=== PATIENT | female | born 1975 | race Caucasian/White ===

== ENCOUNTER 2016-11-07 15:31 | Outpatient (CLI) | payer OTHER ==
[2015-05-08 19:39] VITALS: BP 123/78
--- NOTE | 2016-11-08 15:12 | OP Clinic Progress Note ---
REFERRING PHYSICIAN: Dr. Juan Seymour REASON FOR VISIT: This 40-year-old female is seen accompanied by her younger daughter. Rosina, for over 3 years, has had somewhat of a chronic cough. She has a variety of facial pains and discomfort. Her ears ring. She has a postauricular area of tenderness along her right cheek. The cough tends not to be productive. She does not smoke. The discomfort in both ears is about the same and the ringing in both ears is about the same. She has a history of having taken allergy shots or SLIT, which is sublingual immunotherapy, but had reactions. The oral cavity is status post tonsillectomy. There is some mild, not particularly severe, posterior pharyngitis and the nose has diffuse rhinitis. There is no gross purulence. Both eardrums are fairly retracted, particularly of the malleus and the umbo with a fair amount of tightening and tension. There is no gross fluid. The ear canals are fairly unremarkable. It is tender in the postauricular area and the submastoid area. No known exact etiology for the variety of issues. She does not describe having taken recent antibiotics. PLAN: I recommended simply a trial on antibiotics and in the more distant past, she has tolerated erythromycin, so I elected to use a Z-Richard and to take two Z-Paks 5 days apart and I will see her back in about 3 weeks. As opposed to getting just a lot of different tests, CAT scans, and chest x-rays, I simply keep it fairly simple and simply have a trial on the azithromycin. She has also taken a multitude of decongestants and antihistamines. Apparently, when she takes the decongestants, she gets heart palpitations. The patient will be seen back in about 3 weeks to see whether it responds to single therapy treatment. cc: Dr. Juan BURCH
== END 2016-11-07 15:32 ==
LOC: ENT 15:31
PROVIDERS: ATTEND Otolaryngology
DX: H93.13 Tinnitus, bilateral (principal); J02.9 Acute pharyngitis, unspecified
CPT/HCPCS: 99203

== ENCOUNTER 2016-12-05 15:52 | Outpatient (CLI) | payer OTHER ==
[2015-05-08 19:39] VITALS: BP 123/78
--- NOTE | 2016-12-06 15:35 | OP Clinic Progress Note ---
REASON FOR VISIT: Rosina is seen in follow up of her left ear and a variety of bothersome symptoms. She has pressure and discomfort in the left ear. She has some imbalance issues. The hearing is muffled and not clear. She has tinnitus. More of a white noise-type of tinnitus. She took a course of antibiotics and it really did not make any difference. I went over risks, problems, complications of doing a myringotomy in the eardrum. The patient understands the small chance of permanent perforation of the eardrum. With phenol topical anesthesia of the left ear, a myringotomy was made anteriorly in a circumferential fashion. A small paper patch was placed over this. The patient tolerated the procedure well. After the procedure, patient felt like her hearing is much clearer. She also felt that the buzzing and white noise-type of tinnitus had resolved and the significant amount of tenderness in the submastoid area was significantly reduced. Overall, she felt quite pleased. PLAN: The patient will practice aural hygiene. I will see her back in about a month. cc: Dr. Juan BURCH
== END 2016-12-05 15:53 ==
LOC: ENT 15:52
PROVIDERS: ATTEND Otolaryngology
DX: H92.02 Otalgia, left ear (principal); H93.12 Tinnitus, left ear
CPT/HCPCS: 69610; 99214

== ENCOUNTER 2017-01-02 14:30 | Outpatient (CLI) | payer OTHER ==
[2015-05-08 19:39] VITALS: BP 123/78
--- NOTE | 2017-01-03 11:52 | OP Clinic Progress Note ---
REASON FOR VISIT: Rosina is seen in follow up of her left ear pressure, pain and discomfort, tinnitus, and mild imbalance issues, along with ear muffling. I did a myringotomy with a small patch on that about a month ago. In the interval, she has remained much improved. The tinnitus to her estimation is gone. Her balance, which was not severely bad, has improved to being normal. The deep earache has also remained resolved. The area of the myringotomy looks to be well healed. There is still a small amount of a scab on that area. PLAN: I will re-look at the ear and see if the scab has totally come off in about 3 months. cc: Dr. Juan BURCH
== END 2017-01-02 14:32 ==
LOC: ENT 14:30
PROVIDERS: ATTEND Otolaryngology
DX: H92.02 Otalgia, left ear (principal); H93.12 Tinnitus, left ear
CPT/HCPCS: 99213

== ENCOUNTER 2017-08-06 12:32 | Outpatient (CLI) | payer OTHER ==
[2015-05-08 19:39] VITALS: BP 123/78
[2017-08-06 16:51] LABS: ADENOVIRUS DNA NEGATIVE (NEGATIVE); BORDETELLA PERTUSSIS DNA NEGATIVE (NEGATIVE); SOURCE: NASOPHARYNGEAL SWAB
== END 2017-08-06 12:33 ==
LOC: LABRHC 12:32
PROVIDERS: ATTEND Family Medicine
DX: R05 Cough (principal)
CPT/HCPCS: 87486; 87581; 87633; 87798

== ENCOUNTER 2017-09-04 14:47 | Outpatient (CLI) | payer OTHER ==
[2015-05-08 19:39] VITALS: BP 123/78
== END 2017-09-04 14:50 ==
LOC: LABRHC 14:47
PROVIDERS: ATTEND Family Medicine
DX: R07.0 Pain in throat (principal)
CPT/HCPCS: 87070

== ENCOUNTER 2017-10-04 10:54 | Outpatient (CLI) | payer OTHER ==
[2015-05-08 19:39] VITALS: BP 123/78
== END 2017-10-04 11:22 ==
LOC: LABRHC 10:54
PROVIDERS: ATTEND Physician Assistant
DX: J02.9 Acute pharyngitis, unspecified (principal)
CPT/HCPCS: 87070

== ENCOUNTER 2018-01-01 15:31 | Outpatient (CLI) | payer OTHER ==
[2015-05-08 19:39] VITALS: BP 123/78
[2018-01-01 16:06] LABS: BASOPHILS % 0.6 (0.0-1.5); EOSINOPHILS % 2.7 % (0.0-6.8); MEAN CORPUSCULAR VOLUME 82.8 fl (80.0-100.0); MONOCYTES % 4.5 % (0.0-11.0); NEUTROPHILS # 4.8 # k/uL (1.4-7.7)
[2018-01-01 16:16] LABS: eGFR (African) > 60; eGFR (Non-African) > 60
--- NOTE | 2018-01-01 16:53 | Diagnostic Imaging Report ---
NIURKA VO [facility] [id number] [facility].[address] [id number] Report Submission Date: Jan 01, 2018 4:29:54 PM CDT Patient Study Name: TYLOR BUITRAGO Date: Jan 01, 2018 3:54:21 PM CDT Modality Type: CT\SR Gender: F Description: CT ABD PELVIS W/ CON : 73 Institution: [facility] Physician: NIURKA VO CT abdomen and pelvis with CT A/P W/ CONTRAST, RLQ PAIN WITH REBOUND AND GUARDING (Hx) / ITS.REASON RLQ pain with rebound and guarding Note time : 01/01/2018 5:17:25 PM User : Dhara Samano CT A/P W/ CONTRAST, RLQ PAIN WITH REBOUND AND GUARDING (DICOM Hx) contrast Technique: Helically acquired images were obtained from the hemidiaphragms to the pelvic floor following IV but no oral contrast. Findings: The appendix is well visualized and is normal. The liver is mildly diffusely low in attenuation consistent with mild fatty infiltration. There has been a cholecystectomy. There is a small hiatal hernia. The pancreas, adrenal glands, spleen, kidneys and the abdominal aorta are unremarkable. Small and large bowel loops in the abdomen are normal in caliber. The bladder, and seminal vesicles and prostate gland are unremarkable. There is no hydronephrosis. There are no ureteral stones. There is no free fluid in the abdomen or pelvis. Small sclerotic foci of the right ilium are present, likely small bone islands. Mild streaky linear densities are present at both lung bases consistent with discoid atelectasis versus scarring. Chronic bilateral L5 pars defects are present. Impression: Normal appendix. No acute intraabdominal or intrapelvic abnormality. Fatty liver. Status post cholecystectomy. Small hiatal hernia. Chronic bilateral L5 pars defects. Electronically signed on Jan 01, 2018 4:29:54 PM CDT by: Promise BURCH
== END 2018-01-01 15:33 ==
LOC: RAD 15:31
PROVIDERS: ATTEND Physician Assistant
DX: R10.31 Right lower quadrant pain (principal); R10.829 Rebound abdominal tenderness, unspecified site; R30.0 Dysuria
CPT/HCPCS: 74177; 80053; 85025; 87086; Q9967

== ENCOUNTER 2018-02-09 15:11 | Emergency (ER) | payer OTHER ==
[2018-02-09] MEDS ORDERED: 0.9 % SODIUM CHLORIDE 1,000 ML IV ONE (15:26)
[2018-02-09] MEDS ORDERED: ONDANSETRON HCL/PF 4 MG/ 2ML VIAL ONE (15:26)
[2018-02-09] MEDS ORDERED: ONDANSETRON HCL/PF 4 MG/ 2ML VIAL IVP ONE (15:26)
[2018-02-09] MEDS: 0.9 % SODIUM CHLORIDE 1,000 ML IV ONE ×2 (15:28→17:12)
--- NOTE | 2018-02-09 15:58 | ED Physician Documentation ---
Headache - HISTORIAN Historian: patient, spouse - HPI Stated Complaint: N/V/D-rt ear and throat pain Chief Complaint: General Adult Additional Information: pt has had chiari malf surg 2010-had one episode similar w/o gi c/o prev-also hx mc but pt says different than this Onset: hours (midnoct sat-1 day ago) Timing: gradual. 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 denies: fever, problems with vision, sensitivity to light Preceding Symptoms: denies: visual disturbance, typical of prior aura(s) Exacerbated By: denies: light, noise, movement Further Comments: yes (pt holds hand to lt ear face) Last known Well Code/Unknown Code: Known - ROS NEURO/PSYCH: denies: confusion, anxiety, depression EYES/ENT: sore throat, sinus pain (very minimal to percussion). denies: difficulty swallowing CVS/RESP: denies: chest pain, shortness of breath GI/: diarrhea. denies: abdominal pain, problems urinating MS/SKIN/LYMPH: denies: muscle aches, back pain, rash, skin lesions, swollen glands - PAST HX Medical History: other (migraine - chiari malformation surg 2010--some assoc h/ a since) Surgical History: other (chiari repair scar upper neck to occiput non tender) Allergies/Adverse Reactions: Allergies Allergy/AdvReac Type Severity Reaction Status Date / Time Penicillins Allergy Intermediate Hives Verified 02/09/18 16:51 Home Medications: Ambulatory Orders Medication Instructions Recorded Rizatriptan Benzoate [Maxalt] 10 mg PO DAILY 02/13/13 - SOCIAL HX Smoking History: non-smoker Alcohol Use: none Drug Use: none - Family HX Family History: none - VITAL SIGNS Vital Signs: Vital Signs Temp Pulse Resp BP Pulse Ox 86 18 138/87 99 02/09/18 15:15 02/09/18 15:15 02/09/18 15:15 02/09/18 15:15 - REVIEWED ASSESSMENTS Nursing Assessment Reviewed: Yes Vitals Reviewed: Yes ED Results Lab/Radiology - Lab Results Lab Results: Lab Results 02/09/18 02/09/18 Unknown Unknown WBC Pending RBC 5.03 M/ul M/ul (3.90-5.20) Hgb 14.5 g/dL g/dL (12.0-16.0) Hct 42.3 % % (34.5-46.5) MCV 84.1 fl fl (80.0-100.0) MCH 28.9 pg pg (28.0-34.0) MCHC 34.4 g/dL g/dL (30.0-36.0) RDW 13.5 % % (11.3-14.3) Plt Count 162 K/mm3 K/mm3 (130-400) Neut % (Auto) 68.4 % % (39.0-79.0) Lymph % (Auto) 18.4 % % (16.0-50.0) Starke % (Auto) 8.0 % % (0.0-11.0) Eos % (Auto) 2.2 % % (0.0-6.8) Baso % (Auto) 0.4 (0.0-1.5) Neut # (Auto) 4.2 # k/uL # k/uL (1.4-7.7) Lymph # (Auto) 1.1 # k/uL # k/uL (0.6-4.0) Starke # (Auto) 0.5 # k/uL # k/uL (0.0-0.9) Eos # (Auto) 0.1 # k/uL # k/uL (0.0-0.6) Baso # (Auto) 0.0 # k/uL # k/uL (0.0-0.5) Reactive Lymphs % 2.6 % % (0.0-5.0) Reactive Lymphs # 0.2 # k/uL # k/uL (0.0-0.8) Sodium 138 mmol/L mmol/L (136-145) Potassium 3.9 mmol/L mmol/L (3.5-5.1) Chloride 103 mmol/L mmol/L (98-107) Carbon Dioxide 26 mmol/L mmol/L (22-30) BUN 9 mg/dL mg/dL (7-17) Creatinine 0.70 mg/dL mg/dL (0.52-1.04) Estimated Creat Clear 165 Est GFR ( Amer) > 60 (60 - ) Est GFR (Non-Af Amer) > 60 (60 - ) Glucose 165 mg/dL H mg/dL (74-106) Calcium 9.1 mg/dL mg/dL (8.4-10.2) Total Bilirubin 0.5 mg/dL mg/dL (0.2-1.3) AST 55 U/L H U/L (15-46) ALT 86 U/L H U/L (13-69) Alkaline Phosphatase 97 U/L U/L (38-126) Total Protein 7.2 g/dL g/dL (6.3-8.2) Albumin 4.2 g/dL g/dL (3.5-5.0) - Orders Orders: ED Orders Category Date Time Status Place IV Lock 1T Care 02/09/18 15:26 Active CBC/PLATELET/DIFF Routine Lab 02/09/18 Results CMP Routine Lab 02/09/18 Completed Rapid Strep [GRP A STREP SCREEN] Stat Lab 02/09/18 Ordered URINALYSIS Routine Lab 02/09/18 Received 0.9 % Sodium Chloride [Normal Saline] Med 02/09/18 17:00 Once 1,000 ml IV NOW ONE 0.9 % Sodium Chloride [Normal Saline] 1,000 ml Med 02/09/18 15:26 Discontinued IV .STK-MED 0.9 % Sodium Chloride [Normal Saline] 1,000 ml Med 02/09/18 15:26 Discontinued IV Q1H Diphenoxylate HCl/Atropine [Lomotil] Med 02/09/18 17:54 Discontinued 1 each PO .STK-MED ONE Diphenoxylate HCl/Atropine [Lomotil] Med 02/09/18 18:08 Discontinued 1 each PO NOW ONE Ondansetron HCl/Pf [Zofran 4 mg/2 ml] Med 02/09/18 15:26 Discontinued 4 mg .ROUTE .STK-MED ONE Ondansetron HCl/Pf [Zofran 4 mg/2 ml] Med 02/09/18 15:26 Discontinued 4 mg IVP NOW ONE Headache Physical Exam - EXAM General Appearance: mild distress EENT: no facial swelling, eyes nml inspection, pain over sinuses (very minimal) , pharynx nml. No: EOM palsy, unequal pupils, purulent nasal discharge, abnml TM, pharyngeal erythema, tonsillar exudate Neck: normal inspection, thyroid normal. No: stiff neck Respiratory: no resp distress, chest non-tender, breath sounds normal CVS: reg. rate & rhythm, heart sounds nml. No: murmur, tachycardia, bradycardia Abdomen: non-tender Skin: color nml, no rash. No: cyanosis, diaphoresis, pallor Extremitites: non-tender, normal range of motion, no evidence of injury, no edema - NEURO/PSYCH Higher Functions: alert, oriented x3, nml speech, mood/affect nml Cranial: nml as tested Cerebellar: nml gait. denies: abnml Romberg test Sensorimotor: motor nml, sensation nml. denies: weakness, aphasia Discharge Clincal Impression: dehydration-emesis diarrhea, FOOD POISONING VIRUS, migraine cephalgia Referrals: Juan Seymour MD [Primary Care Provider] - 2 Days Comments: home - meds - ORT w/gatoraid/water Condition: Good Disposition: 01 HOME, SELF-CARE Decision to Admit: NO Decision Time: 18:26
[2018-02-09 16:02] LABS: BASOPHILS % 0.4 (0.0-1.5); EOSINOPHILS % 2.2 % (0.0-6.8); MEAN CORPUSCULAR HEMOGLOBIN 28.9 pg (28.0-34.0); MEAN CORPUSCULAR VOLUME 84.1 fl (80.0-100.0); NEUTROPHILS # 4.2 # k/uL (1.4-7.7)
[2018-02-09 16:08] LABS: eGFR (African) > 60; eGFR (Non-African) > 60
[2018-02-09] MEDS ORDERED: NORMAL SALINE 500 ML IV.SOLN IV ONE (17:00)
[2018-02-09] MEDS ORDERED: DIPHENOXYLATE HCL/ATROPINE 1 EACH TABLET PO ONE ×2 (17:54→18:08)
[2018-02-09 19:17] VITALS: BP 123/76
[2018-02-10 07:14] LABS: APPEARANCE,URINE CLEAR (CLEAR); COLOR,URINE YELLOW (YELLOW); OCCULT BLOOD,URINE NEGATIVE (NEGATIVE); PH URINE 5.5 (5.0 - 8.0); UROBILINOGEN URINE 0.2 Eu (0.2-1.0)
== END 2018-02-09 18:20 | disposition home or self-care (01) ==
LOC: ED 15:11
DX: E86.0 Dehydration (principal); R19.7 Diarrhea, unspecified; A08.4 Viral intestinal infection, unspecified; G43.909 Migraine, unspecified, not intractable, without status migrainosus
CPT/HCPCS: 80053; 81002; 85025; 87070; 87880; J2405; J7030; 96360; 96361; 96375; 99284; S1016